=== PATIENT | male | born 1995 | race Two or more races ===

== ENCOUNTER 2019-01-30 10:03 | Emergency (ER) | payer OTHER ==
[~2019-01-30] VITALS: Ht 175.3 cm; Wt 81.6 kg
[2019-01-30 10:09] VITALS: BP 128/77
[2019-01-30] MEDS ORDERED: HYDROcodone-ACET 5/325MG TAB PO ONE (11:30)
== END 2019-01-30 11:59 | disposition left against medical advice (07) ==
LOC: ER 10:03
DX: M54.6 Pain in thoracic spine (principal); R07.81 Pleurodynia; Z53.21 Procedure and treatment not carried out due to patient leaving prior to being seen by health care provider
CPT/HCPCS: 71101; 72131

== ENCOUNTER 2021-10-01 13:51 | Emergency (ER) | payer MEDICAID, OTHER ==
[~2021-10-01] VITALS: Ht 170.2 cm; Wt 81.6 kg
[2021-10-01 15:07] VITALS: BP 107/53
[2021-10-01] MEDS ORDERED: IBUP800T27 PO (15:12)
== END 2021-10-01 15:35 | disposition home or self-care (01) ==
LOC: EDUNIT# 13:51 → ER 13:51 → EDBD 13:51 → ER 15:34
DX: S83.92XA Sprain of unspecified site of left knee, initial encounter (principal); W19.XXXA Unspecified fall, initial encounter; Y93.89 Activity, other specified; Y92.89 Other specified places as the place of occurrence of the external cause; Y99.8 Other external cause status
CPT/HCPCS: 29505; 73562